=== PATIENT | female | born 1975 | race Two or more races ===

== ENCOUNTER 2021-10-08 15:38 | Outpatient (CLI) | payer BC | END 2021-10-08 15:39 | disposition home or self-care (01) | LOC: CSHULT 15:38 | PROVIDERS: ATTEND Internal Medicine | DX: N92.6 Irregular menstruation, unspecified (principal) | CPT/HCPCS: 76856 ==

== ENCOUNTER 2022-05-21 15:59 | Outpatient (CLI) | payer BC | END 2022-05-21 16:00 | disposition home or self-care (01) | LOC: CSHMAMMO 15:59 | PROVIDERS: ATTEND Internal Medicine | DX: Z12.31 Encounter for screening mammogram for malignant neoplasm of breast (principal); N63.10 Unspecified lump in the right breast, unspecified quadrant | CPT/HCPCS: 77063; 77067 ==

== ENCOUNTER 2022-05-26 12:53 | Outpatient (CLI) | payer BC | END 2022-05-26 12:54 | disposition home or self-care (01) | LOC: CSHULT 12:53 | PROVIDERS: ATTEND Internal Medicine | DX: R92.8 Other abnormal and inconclusive findings on diagnostic imaging of breast (principal) | CPT/HCPCS: G0279 ==

== ENCOUNTER 2023-01-12 08:20 | Outpatient (CLI) | payer BC | END 2023-01-12 08:21 | disposition home or self-care (01) | LOC: CSHMAMMO 08:20 | PROVIDERS: ATTEND Internal Medicine | DX: R92.8 Other abnormal and inconclusive findings on diagnostic imaging of breast (principal) | CPT/HCPCS: G0279 ==

== ENCOUNTER 2023-09-03 07:55 | Outpatient (CLI) | payer BC | END 2023-09-03 07:56 | disposition home or self-care (01) | LOC: CSHMAMMO 07:55 | PROVIDERS: ATTEND Internal Medicine | DX: Z12.31 Encounter for screening mammogram for malignant neoplasm of breast (principal) | CPT/HCPCS: 77063; 77067 ==